=== PATIENT | male | born 1960 | race Caucasian/White ===

== ENCOUNTER 2024-02-15 05:58 | Day surgery (SDC) | payer BC ==
[~2024-02-15] VITALS: Ht 205.7 cm; Wt 117.8 kg
[~2024-02-15 05:58] MED LIST: LR 1,000 ML IV SCH; Ondansetron 4 MG/2 ML VIAL IV PRN
[2024-02-15] MEDS ORDERED: TRESIBA FL200 UNIT/1 SQ (06:26)
[2024-02-15] MEDS ORDERED: ADMELOG SO100 UNIT/1 SQ (06:27)
[2024-02-15] MEDS ORDERED: FIBERCON (06:28)
[2024-02-15] MEDS ORDERED: EPA FISH OIL1 SGL PO (06:28)
[2024-02-15] MEDS ORDERED: COMPLETE MULTI1 TAB PO (06:29)
[2024-02-15 06:45] VITALS: BP 134/77; PULSE 65; TEMP 97.1
[2024-02-15] MEDS ORDERED: Lidocaine PF 2% (20 MG/ML) 5 ML VIAL ONE (07:31)
--- NOTE | 2024-02-15 08:10 | NUR ---
PATIENT RETURNS TO ROOM 3 PER CART AFTER HAVING COLONOSCOPY AND TRANSFERS FROM CART TO RECLINER WITH ONE PERSON ASSIST. IVF INFUSING. DENIES NAUSEA OR ABDOMINAL PAIN. GIVEN DIET PEPSI AND MUFFIN. CALL LIGHT IN REACH.
[2024-02-15 08:25] VITALS: BP 105/76; PULSE 53
--- NOTE | 2024-02-15 08:25 | NUR ---
TOLERATED SNACK. DENIES DISCOMFORT.
[2024-02-15 08:26] VITALS: BP 109/73; PULSE 54
[2024-02-15 08:37] VITALS: BP 116/71; PULSE 51
--- NOTE | 2024-02-15 08:37 | NUR ---
SHEREE WAITE AND DR. DAWKINS IN THE ROOM TO TALK WITH PATIENT AND ANSWER ALL QUESTIONS.
== END 2024-02-15 08:55 | disposition home or self-care (01) ==
LOC: SDCO 05:58
DX: Z12.11 Encounter for screening for malignant neoplasm of colon (principal); K64.1 Second degree hemorrhoids
CPT/HCPCS: J2704; J7120